=== PATIENT | male | born 1950 | race Caucasian/White ===

== ENCOUNTER 2024-12-15 10:07 | Emergency (ER) | payer MEDICARE, OTHER, SELFPAY ==
--- NOTE | ~2024-12-15 | XR_ITS ---
CLINICAL HISTORY: Rt shoulder pain Radiographs of the right shoulder, 4 views Comparison: None available Findings: No fracture or dislocation. Normal acromiohumeral interval. Mild to moderate degenerative change. No soft tissue swelling. Impression: No acute findings. This document has been electronically signed by: Terri Yadav MD on 12/15/2024 13:18:14
--- NOTE | ~2024-12-15 | XR_ITS ---
CLINICAL HISTORY: Rt humerus pain Radiographs of the right humerus, 2 views Comparison: None available Findings: No fracture or dislocation. Contour abnormality of the greater tuberosity, favored to be degenerative. Zanv-fw-brujwpsy degenerative change. Soft tissue swelling. Impression: No fracture. This document has been electronically signed by: Terri Yadav MD on 12/15/2024 13:18:30
--- NOTE | ~2024-12-15 | XR_ITS ---
CLINICAL HISTORY: Rt elbow pain Radiographs of the right elbow, 3 views Comparison: None available Findings: No fracture or dislocation. Rorn-kj-ufkidzje degenerative change. No joint effusion. Soft tissue swelling. Impression: No fracture. This document has been electronically signed by: Terri Yadav MD on 12/15/2024 13:18:51
[2024-12-15 10:10] VITALS: BP 240/113; PULSE 64; RESP 18; TEMP 36.4; O2SAT 99; BMI 32.6
[2024-12-15 11:26] LABS: MANUAL DIFF FLAG NO
[2024-12-15 11:37] LABS: Hematocrit 44.6 % (42.0-52.0); Hemoglobin 15.1 g/dl (14.0-18.0); Imm Gran Abs Auto 0.00 X10*3/uL (0.00-0.03); Imm Gran Pct Auto 0.0 % (0.0-0.4); Lymphocytes Absolute Auto 1.3 X10*3/uL (1.2-4.9); Mean Corpuscular HGB Conc 33.9 g/dl (31.0-36.0); Mean Corpuscular Hemoglobin 30.3 pg (27.0-33.0); Mean Corpuscular Volume 89.4 fL (80.0-98.0); NRBC Abs Auto 0.000 X10*3/uL (0.0-0.012); NRBC Pct Auto 0.0 /100WBC (0.0-0.2); Platelet Count 151 X10*3/uL (160-400); Red Blood Count 4.99 X10*6/uL (4.60-5.80); White Blood Count 3.9 X10*3/uL (4.8-10.8)
[2024-12-15 11:40] LABS: INTERNATIONAL NORM RATIO 1.0 (0.9-1.1); Prothrombin Time 11.3 SEC (10.9-12.4)
[2024-12-15 11:58] LABS: Alanine Aminotransferase 48 U/L (0-40); Albumin Level 4.6 g/dL (3.5-5.0); Alkaline Phosphatase 74 U/L (39-117); Anion Gap 11 (12-20); Aspartate Amino Transferase 31 U/L (5-37); Blood Urea Nitrogen 22 mg/dL (9-16); Calcium 9.4 mg/dL (8.4-10.2); Carbon Dioxide 27 mmol/L (22-29); Chloride 106 mmol/L (96-108); Creatinine Clr Calc Pharmacy 62.2; Estimated Glomerular Filt Rate > 60; Potassium 4.2 mmol/L (3.3-5.1); Sodium 140 mmol/L (135-145); Total Protein 7.4 g/dL (6.5-8.0)
--- NOTE | 2024-12-15 12:32 | ED_ITS ---
HPI - Extremity Problem General Chief complaint: Extremity Injury, Upper Stated complaint: R arm swollen Time Seen by Provider: 12/15/24 11:07 Source: patient and family Mode of arrival: ambulatory Limitations: no limitations History of Present Illness ED Provider: DENNIS Brush HPI Narrative: This is a 74-year-old male who presents with right biceps pain x4 days. Patient reports 4 days ago he sustained a trip and fall fell down landed on a right outstretched arm while falling down he twisted his arm. Since then he has been having a lump, pain and swelling. Patient reports pain is severe and he feels like he can barely move his right upper extremity. He has normal sensation to his hand and wrist he tells me he can wiggle his fingers however he is unable to lift his arm. Denies head strike or loss of consciousness. Not on blood thinners. Denies fevers, chills, preceding symptoms to fall such as chest pain, shortness of breath, nausea, vomiting, abdominal pain, headache, vision changes and dizziness. Related Data Previous Rx's ?Medication ?Instructions ?Recorded acetaminophen 325 mg tablet 650 mg (2 x 325 mg) PO Q6H PRN 12/15/24 (Tylenol) fever or pain #30 tabs amlodipine 5 mg tablet 5 mg PO DAILY 30 days #30 ta bs 12/15/24 morphine 15 mg immediate release 15 mg PO Q6H PRN pain 5 days #10 12/15/24 tablet tabs Allergies Allergy/AdvReac Type Severity Reaction Status Date / Time No Known Allergies Allergy Verified 12/15/24 10:12 Review of Systems 2 Review of Systems: Yes all other systems are reviewed and are negative [facility] Past Medical History Attestation statement: The following information was validated with the patient. Source: old records reviewed and nursing notes reviewed Social History Social History Advance Directives: No Advance Directives Information Provided: Yes Physical Exam 2 Exam: Exam: Appearance: Alert.? Oriented X3.? No acute distress.? Head: Normocephalic, atraumatic, no step-offs or deformities Eyes: Pupils equal, round and reactive to light.? ENT: Pharynx normal.? Neck: Normal inspection.? Neck supple.? CVS: Normal heart rate and rhythm.? Pulses normal.? Respiratory: No respiratory distress.? Breath sounds normal.? Abdomen: Soft and nontender.? Skin: Skin warm and dry.? Normal skin color.? Normal skin turgor.? Extremities: No lower extremity edema.? No calf ttp. 5/5 strength to bilateral upper and lower extremities 2+ radial pulses cap refil < 2 seconds equal and b/l. Normal distal sensation + biceps deformiy noted ( image below) Neuro: Oriented X 3.? No motor deficit.? No sensory deficit. CN 2-12 intact Vital Signs: Vital Signs: Last Vital Signs Temp 98.6 F 12/15/24 14:22 Pulse 63 12/15/24 14:22 Resp 18 12/15/24 14:22 BP 212/95 H 12/15/24 14:22 Pulse Ox 99 12/15/24 14:22 O2 Del Method Room Air 12/15/24 14:22 BMI result Body Mass Index 32.6 vss Course Reevaluation(s) Reevaluation #1: CBC with leukopenia 3.9. No previous labs to compare with. Chemistry with elevated BUN 22, creatinine 1.10, will advise him to increase p.o. hydration. Patient coags unremarkable. X-ray of the right shoulder, humerus, elbow all unremarkable. He does have an evident deformities of the right upper extremity in the bicep region I do suspect this is a biceps tendon tear. Will reach out to Orthopedics to advise him on this patient. Patient seems to be in pain, will order p.o. morphine at this time. No indication for IV. Will avoid NSAIDs as he is 74 years old and concerned for kidney injury as he already has an elevated BUN and creatinine. Time: 13:25 Reevaluation #2: Patient to be discharged home with p.o. morphine. Discuss this case with orthopedics Dr. Hinkle who recommends outpatient follow-up with ortho within a week. Okay to give a sling for comfort. Educated patient on diagnosis and treatment plan, answered all question, patient verbalizes understanding. At this time patient will be discharged home, advised to return with new or worsening symptoms. Educated on worrisome signs and symptoms and when to return. At this time I feel comfortable discharge home. Time: 13:36 Reevaluation #3: Upon discharge I did note patient's blood pressure was elevated initially I thought this is secondary to pain however on repeat vitals patient still had elevated blood pressure no headache, dizziness, weakness, chest pain or shortness of breath. I added a troponin. Will obtain an EKG. Will start patient on amlodipine 5 mg. He has been on blood pressure medication in the past however he is not on med compliant he does not like to take medication. I explained to him it is silvestre to start taking medication at this time as uncontrolled blood pressure can lead to stroke. Patient verbalizes understanding Time: 14:20 Additional Reevaluation(s): Patient feels well, will discharge him in a few minutes after repeat BP check. No neurological findings on exam EKG normal sinus rhythm no ST elevations or inversions concerning for ischemia. No signs of hypertensive emergency. No indication for hospital admission. Patient will go home monitor his blood pressures and follow up with PCP Patient's blood pressure improved Medications Administered Discontinued Medications Generic Name Dose Route Start Last Admin Trade Name Freq PRN Reason Stop Dose Admin Amlodipine Besylate 5 mg 12/15/24 14:10 12/15/24 14:16 Amlodipine Besylate 5 Mg Tablet PO 12/15/24 14:11 5 mg ONCE ONE Administration Protocol Morphine Sulfate 15 mg 12/15/24 13:25 12/15/24 13:53 Morphine Sulfate Immed Release 15 Mg Tablet PO 12/15/24 13:26 15 mg ONCE ONE Administration Medical Decision Making Medical Decision Making [facility] Narrative: [id number] 74-year-old male presents with right bicep pain status post trip and fall 4 days ago. On exam there is evidence of deformity to the right bicep region normal distal sensation normal capillary refill, palpable pulses 2+ radial equal bilateral. Unable to assess strength right upper extremity due to pain. Normal strength to left upper extremity. No wrist drop. History and physical exam concerning for biceps tendon rupture likely distal aspect. Will rule out underlying fracture, dislocations of shoulder, elbow and humerus. No signs of neurovascular compromise or acute threat to limb. Plan labs, imaging. Differential Diagnosis Differential Diagnoses: The differential diagnosis associated with the presentation includes (History and physical exam concerning for biceps tendon rupture likely distal aspect. Will rule out underlying fracture, dislocations of shoulder, elbow and humerus. No signs of neurovascular compromise or acute threat to limb.) Admission/Observation Consideration of admission/observation: Escalation of care including admission/observation considered (unlikely ) Lab Data [facility] Lab Attestation statement: I reviewed the patient's lab results. 12/15/24 11:22 12/15/24 11:22 Labs: Lab Results 12/15/24 Range/Units 11:22 WBC 3.9 L (4.8-10.8) X10*3/uL RBC 4.99 (4.60-5.80) X10*6/uL Hgb 15.1 (14.0-18.0) g/dl Hct 44.6 (42.0-52.0) % MCV 89.4 (80.0-98.0) fL MCH 30.3 (27.0-33.0) pg MCHC 33.9 (31.0-36.0) g/dl RDW 13.1 (11.0-16.0) % Plt Count 151 L (160-400) X10*3/uL MPV 10.1 (9.4-12.4) fL Immature Gran % (Auto) 0.0 (0.0-0.4) % Neut % (Auto) 54.8 (45-73) % Lymph % (Auto) 32.4 (20-40) % Sully % (Auto) 10.4 (2-11) % Eos % (Auto) 1.6 (0-4) % Baso % (Auto) 0.8 (0-2) % Lymph # (Auto) 1.3 (1.2-4.9) X10*3/uL Sully # (Auto) 0.4 (0.1-1.2) X10*3/uL Eos # (Auto) 0.1 (0.0-0.4) X10*3/uL Baso # (Auto) 0.0 (0.0-0.2) X10*3/uL Abs Immat Gran (auto) 0.00 (0.00-0.03) X10*3/uL Absolute Neuts (auto) 2.1 (2.0-8.3) x10*3/uL Absolute Nucleated RBC 0.000 (0.0-0.012) X10*3/uL Nucleated RBC % (auto) 0.0 (0.0-0.2) /100WBC ESR 5 (0-15) MM/HR PT 11.3 (10.9-12.4) SEC INR 1.0 (0.9-1.1) Sodium 140 (135-145) mmol/L Potassium 4.2 (3.3-5.1) mmol/L Chloride 106 (96-108) mmol/L Carbon Dioxide 27 (22-29) mmol/L Anion Gap 11 L (12-20) BUN 22 H (9-16) mg/dL Creatinine 1.10 (0.5-1.4) mg/dL Estim Creat Clear Calc 62.2 Estimated GFR > 60 Random Glucose 100 (60-115) mg/dL Calcium 9.4 (8.4-10.2) mg/dL Total Bilirubin 0.3 (0.0-1.0) mg/dL AST 31 (5-37) U/L ALT 48 H (0-40) U/L Alkaline Phosphatase 74 (39-117) U/L C-Reactive Protein 0.10 (< or = 0.50) mg/dL Total Protein 7.4 (6.5-8.0) g/dL Albumin 4.6 (3.5-5.0) g/dL Independent Interpretation I performed an independent interpretation of an: Plain X-Ray Interpretation: Findings: No fracture or dislocation. Normal acromiohumeral interval. Mild to moderate degenerative change. No soft tissue swelling. Impression: No acute findings. Findings: No fracture or dislocation. Contour abnormality of the greater tuberosity, favored to be degenerative. Rgdt-mm-gexjnhez degenerative change. Soft tissue swelling. Impression: No fracture. Findings: No fracture or dislocation. Yopj-cm-vlgciuhl degenerative change. No joint effusion. Soft tissue swelling. Impression: No fracture. Radiology Impression Discussion of test interpretation with radiology: I have reviewed the radiologist's reading. Independent Historian Clinical information obtained from an independent historian. History obtained from or confirmed by: Spouse Tests considered The following testing was considered but not selected: I considered obtaining imaging of hand, wrist, radius and ulna however, no tenderness to palpation in this region. Prescription Management I considered prescription management with: Pain Medication Critical Care Time Critical Care Time Critical Care Time: Yes Total Critical Care Time: 35 Attestation: I attest to this time spent taking care of the patient, obtaining history, physical, reviewing labs, imaging, treatment of patients condition +/- specialist/hospitalist consult +/- procedure Discharge Plan Discharge Clinical Impression: Biceps rupture, distal, Fall, Hypertension Patient Disposition: Home, Self-Care Instructions: Hypertension (ED), Fall Prevention (ED), Tendon Rupture (ED), Cold Compress or Soak (ED) Additional Instructions: Take your medications as prescribed. If you were prescribed antibiotics today, it is important that you take your medication to their entirety, do not skip any doses, do not finish them early. Follow-up with your primary care provider this week. Return to the emergency department with new or worsening symptoms. Such as fevers, chills, chest pain, shortness of breath, nausea, vomiting, dizziness, headache, vision changes, lethargy In case of emergency call 911 A narcotic has been sent to your pharmacy please take this as prescribed. Do not take more than the prescribed dose. Narcotic medications can cause addiction. Please do not mix them with alcohol. Do not take them while driving or operating machinery. Do not take them with any other narcotics. Do not share them with friends or family. They can cause constipation. Take them only for severe pain. Blood pressure was significantly elevated in the emergency department uncontrolled hypertension can lead to stroke. I have sent amlodipine a blood pressure medicine that should be taken every day. We gave you a dose today please take another 1 tomorrow and follow up with your primary care provider. Findings: No fracture or dislocation. Normal acromiohumeral interval. Mild to moderate degenerative change. No soft tissue swelling. Impression: No acute findings. Findings: No fracture or dislocation. Contour abnormality of the greater tuberosity, favored to be degenerative. Ueit-sa-qxlnnvmi degenerative change. Soft tissue swelling. Impression: No fracture. Findings: No fracture or dislocation. Vfst-qg-nwkcazzh degenerative change. No joint effusion. Soft tissue swelling. Impression: No fracture. Prescriptions: New acetaminophen [Tylenol] 325 mg tablet 650 mg PO Q6H PRN (Reason: fever or pain) Qty: 30 0RF morphine 15 mg tablet 15 mg PO Q6H PRN (Reason: pain) 5 Days Qty: 10 0RF Rx Instructions: Partial Fill upon patient request. amlodipine 5 mg tablet 5 mg PO DAILY 30 Days Qty: 30 0RF Referrals: [facility] [place] [facility] [Provider Group] - 1 week Physician,Unknown J [Primary Care Provider, Medical] Stand Alone Forms: Work/School Release Print Language: Luxembourger
[2024-12-15] MEDS: Morphine Sulfate Immed Release 15 MG TABLET PO (13:53)
[2024-12-15 14:16] VITALS: BP 212/95
--- NOTE | 2024-12-15 14:19 | ECG_ITS ---
Test Reason : NEW HTN Blood Pressure : */* mmHG Vent. Rate : 63 BPM Atrial Rate : 63 BPM P-R Int : 174 ms QRS Dur : 86 ms QT Int : 386 ms P-R-T Axes : 43 -19 22 degrees QTcB Int : 395 ms Normal sinus rhythm Septal infarct , age undetermined Abnormal ECG No previous ECGs available Referred By: Leander Brush Electronically Signed By: Fermin Lechuga
[2024-12-15 14:22] VITALS: BP 212/95; PULSE 63; RESP 18; TEMP 37; O2SAT 99
--- NOTE | 2024-12-15 14:23 | PC.NURSE ---
This RN was at bedside applying sling to pt, medicating per MAY, going over DC paperwork, PA at bedside to discuss HTN with pt, who reports he is no longer taking any BP medications at this time, vitals obtained, pt remains HTN, amlodipine given, will be started on DC, extensive medication education given at this time, along with follow up instructions. Pt to stay in ED for observation for a short period of time, EKG order placed at this time
[2024-12-15 15:14] LABS: Troponin-I High Sensitivity < 2.7 ng/L (<3.5-35.0)
[2024-12-15 15:27] VITALS: BP 199/96; PULSE 63; RESP 18; TEMP 37; O2SAT 100
[2024-12-15 15:28] VITALS: BP 199/96; PULSE 63; RESP 18; TEMP 37; O2SAT 100
== END 2024-12-15 15:51 | disposition home or self-care (01) ==
PROVIDERS: Physician Assistant; Emergency Provider Student in an Organized Health Care Education/Training Program
DX: S46.211A Strain of muscle, fascia and tendon of other parts of biceps, right arm, initial encounter (principal); R60.0 Localized edema; M79.601 Pain in right arm; R94.31 Abnormal electrocardiogram [ECG] [EKG]; M25.511 Pain in right shoulder; I10 Essential (primary) hypertension; X50.1XXA Overexertion from prolonged static or awkward postures, initial encounter; Y93.9 Activity, unspecified; Y92.9 Unspecified place or not applicable; Y99.8 Other external cause status; Z79.899 Other long term (current) drug therapy
CPT/HCPCS: 36415; 73030; 73060; 73080; 80053; 84484; 85025; 85610; 85652; 86140; 93005; 99283; 99284

== ENCOUNTER → 2024-12-15 11:08 | Outpatient (BNV) | payer MEDICARE, OTHER, SELFPAY | PROVIDERS: Emergency Provider Student in an Organized Health Care Education/Training Program; Visit Provider Radiology Diagnostic Radiology | DX: M25.511 Pain in right shoulder (principal); M25.521 Pain in right elbow; M79.621 Pain in right upper arm | CPT/HCPCS: 73030; 73060; 73080 ==

== ENCOUNTER → 2024-12-15 14:19 | Outpatient (BNV) | payer MEDICARE, OTHER, SELFPAY | PROVIDERS: Emergency Provider Student in an Organized Health Care Education/Training Program; Visit Provider Internal Medicine Cardiovascular Disease | DX: R94.31 Abnormal electrocardiogram [ECG] [EKG] (principal); I10 Essential (primary) hypertension | CPT/HCPCS: 93010 ==

== ENCOUNTER 2024-12-20 08:49 | Outpatient (AMB) | payer MEDICARE, OTHER, SELFPAY ==
--- NOTE | 2024-12-20 08:50 | A.OFFVIS_ITS ---
Intake Visit Reasons: ED f/u- bicep injury DOI 12/13/24 per TM Intake Note: Sunil is a 74 year old right hand dominant male who presents today as a new patient for an ER follow up of right bicep injury, DOI ~12/13/24. Patient reports that he had a trip and fall on an outstretched arm, he presented [place] [facility] [place] about 4 days [place]. X-rays were taken, he was placed in a sling. Today patient reports that he was doing well, however he used his arm yesterday and reports throbbing pain that started around 3 am this morning. No numbness or tingling. Allergies No Known Allergies Allergy (Verified 12/20/24 09:04) Medication List - Last Reconciled 12/20/24 by Kera Mccray PA-C acetaminophen (Tylenol) 650 mg (2 x 325 mg) PO Q6H PRN amlodipine 5 mg PO DAILY 30 days morphine 15 mg PO Q6H PRN 5 days HPI HPI ED f/u- bicep injury DOI 12/13/24 per TM: Details: 74-year-old gentleman comes to the office today for an injury he sustained to his right arm on 12/13/2024. Patient states he fell down the stairs and felt a pain in the right shoulder region. He states he has a history of left rotator cuff tear on the left side and it does not feel anything similar. He was seen in the emergency department where was evaluated and there was suspicion for a biceps tendon injury. He was placed in a sling and referred to our office for ortho eval. [facility] Surgical History (Updated 12/20/24 @ 08:58 by KATERINA Torres) Hx of shoulder surgery Social History (Updated 12/20/24 @ 08:58 by KATERINA Torres) Patient Tobacco Use Status: Never used Tobacco Current occupational status: retired Current occupation: right hand dominant Review of Systems Const All systems reviewed & are unremarkable except as noted in HPI and below Physical Exam Const General: cooperative and no acute distress Orientation/consciousness: patient oriented x3 Resp Effort & Inspection: normal respiratory effort and able to speak in complete sentences Cardio Peripheral pulses: Peripheral pulses 2+ throughout Neuro General: patient oriented x3 Extrem Other: Right biceps is normal to inspection negative hook test. He can supinate pronate without pain flexion extension of the elbow without pain. No muscle deformity present. Assessment & Plan Assessment & Plan (1) Right shoulder strain: Code(s): S46.911A - Strain of unspecified muscle, fascia and tendon at shoulder and upper arm level, right arm, initial encounter Category: Medical Plan: No evidence of acute biceps tendon injury. The patient will continue with activities as tolerated. If there is any concerns going forward he will contact our office otherwise follow up as needed. Coding Level of Care Code New Pt Level 3 (21383) Complex EM visit Add On G2211 Diagnoses Right shoulder strain S46.911A
== END 2024-12-20 09:35 | disposition home or self-care (01) ==
LOC: HO.HOS 08:50
PROVIDERS: Visit Provider Physician Assistant
DX: S46.911A Strain of unspecified muscle, fascia and tendon at shoulder and upper arm level, right arm, initial encounter (principal)
CPT/HCPCS: 99203; G2211

== ENCOUNTER → 2024-12-20 08:49 | Outpatient (BNVA) | payer MEDICARE, OTHER, SELFPAY | PROVIDERS: Visit Provider Physician Assistant | DX: Z09 Encounter for follow-up examination after completed treatment for conditions other than malignant neoplasm (principal); S46.911A Strain of unspecified muscle, fascia and tendon at shoulder and upper arm level, right arm, initial encounter | CPT/HCPCS: 99202 ==